=== PATIENT | female | born 1955 | race Caucasian/White ===

== ENCOUNTER → 2016-11-17 | Outpatient (CLI) | payer OTHER ==
--- NOTE | 2016-11-17 12:03 | CT ---
CT Heart Scan Calcium Score Clinical Indications: 61-year-old female whose mother and grandmother have arteriosclerosis at age 59 . The patient presents today for routine heart screening. She smoked for 4 years, although quit 40 ye ars ago. Technique: 2.[address] imaging of the heart. Images were interpreted by radiolog ist. Dose reduction techniques were utilized. Comparison study: None. Findings: Coronary Calcium Score: No calcification is found within the coronary arteries. The AJ score is 0. Th is places the patient in the 10th percentile rank, and means that 90% of females between the ages of 56 and 60 will actually have a higher calcium score than this patient. Pulmonary Nodule Evaluation: No pulmonary nodules are found. The visualized cardiac chambers, pericar dium, and the thoracic aortic contour are normal. The osseous structures are age-appropriate with marilou e degenerative features of the spine. There is a 9 x 9 mm rounded hypodense cystic structure with a H [place] unit measurement of 14 near the left hepatic dome. Impression: The calcium score is 0, with no identifiable plaque, and the probability of coronary noé ry disease is very unlikely (less than 1%). Recommendations: 1. Reassure the patient. 2. Discuss risk factors. 3. Repeat scans no more often than every 5 years.
== END ==
LOC: FIMAGING 10:19
PROVIDERS: ATTEND Internal Medicine
DX: Z13.6 Encounter for screening for cardiovascular disorders (principal); Z82.49 Family history of ischemic heart disease and other diseases of the circulatory system; Z87.891 Personal history of nicotine dependence